=== PATIENT | female | born 2000 | race Caucasian/White ===

== ENCOUNTER → 2021-11-27 | Outpatient (CLI) | payer OTHER ==
[~2021-11-27] MED LIST: AMOXICILLIN500 MG PO; AMOXIL250 MG/5 M PO; BENADRYL12.5 MG/5 PO; CLARITIN10 MG PO; FLONASE0.05 MG/AC NS; LIDEX0.05% T; MOTRIN400 MG PO
[2021-11-27 12:25] LABS: BASO # 0.1 10*3/uL (0.0-0.1); BASO % 0.4 % (0.0-1.0); EOS # 0.1 10*3/uL (0.0-0.4); HEMATOCRIT 38.8 % (37.0-47.0); LYMPH # 2.5 10*3/uL (1.3-4.4); LYMPH % 19.3 % (27.0-41.0); MEAN CELL VOLUME 89.8 fl (81.0-99.0); MEAN CORPUSCULAR HGB 30.8 pg (27.0-31.0); MEAN CORPUSCULAR HGB CONC 34.3 g/dl (33.0-37.0); MEAN PLATELET VOLUME 10.6 fl (9.6-12.3); MONO # 0.8 10*3/uL (0.1-1.0); MONO % 6.1 % (3.0-9.0); NEUT # 9.2 10*3/uL (2.3-7.9); NEUT % 72.8 % (47.0-73.0); PLATELET COUNT AUTOMATED 269 10*3/uL (130-400); RED BLOOD COUNT 4.32 10*6/uL (4.10-5.10); RED CELL DISTRI WIDTH 11.9 % (0-14.5); WHITE BLOOD COUNT 12.7 10*3/uL (4.8-10.8)
== END | disposition home or self-care (01) ==
LOC: LAB 11:52
PROVIDERS: ATTEND Orthopaedic Surgery
DX: M25.462 Effusion, left knee (principal)

== ENCOUNTER 2024-04-09 16:05 | Emergency (ER) | payer OTHER ==
[~2024-04-09] VITALS: Ht 165.1 cm; Wt 76.2 kg
[2024-04-09] MEDS ORDERED: Amoxicillin/Clavulanate Pota 875 MG TAB PO ONE (16:30)
[2024-04-09] MEDS ORDERED: AMOX-CLAV 875-1 EACH PO (16:37)
[2024-04-09] MEDS ORDERED: MELOXICAM15 MG PO (16:37)
== END 2024-04-09 16:50 | disposition home or self-care (01) ==
LOC: ED 16:05
DX: J02.0 Streptococcal pharyngitis (principal); M54.50 Low back pain, unspecified; Z98.890 Other specified postprocedural states